=== PATIENT | female | born 1975 | race Caucasian/White ===

== ENCOUNTER 2018-05-25 19:01 | Emergency (ER) | payer OTHER ==
--- NOTE | 2018-05-25 20:25 | UC ---
Throat Pain/Nasal Saul HPI - HPI Summary HPI Summary: Pt presents to urgent with sore throat and right ear pain. Pt denies drainage. mild sinus congestion. + sick contacts Pt has taken elderberry syrup with little improvement. painful swallowing no drooling. No rash no cough, sob pt's medications reviewed this visit - History of Current Complaint Chief Complaint: UCEar Stated Complaint: ST, CONGESTION,RT EAR PAIN Time Seen by Provider: 05/25/18 20:22 Hx Obtained From: Patient Hx Last Menstrual Period: 05/12/18 Onset/Duration: Gradual Onset Severity: Moderate Pain Intensity: 5 Pain Scale Used: 0-10 Numeric - Allergies/Home Medications Allergies/Adverse Reactions: Allergies Allergy/AdvReac Type Severity Reaction Status Date / Time No Known Allergies Allergy Verified 05/25/18 19:57 Home Medications: Home Medications Elderberry Syrup 10 ml PO DAILY PRN 05/25/18 [History Confirmed 05/25/18] PMH/Surg Hx/FS Hx/Imm Hx Previously Healthy: Yes - Surgical History Surgical History: Yes Surgery Procedure, Year, and Place: tubal ligation. surgical repair of collapsed anticube vein as an - Family History Known Family History: Positive: Non-Contributory - Social History Lives: With Family Alcohol Use: Rare Substance Use Type: None Smoking Status (MU): Never Smoked Tobacco Review of Systems All Other Systems Reviewed And Are Negative: Yes Constitutional: Positive: Fatigue ENT: Positive: Sore Throat, Ear Ache, Sinus Congestion Cardiovascular: Positive: Negative Gastrointestinal: Positive: Negative Physical Exam - Summary Physical Exam Summary: Vital Signs Reviewed: Yes A+Ox3, no distress Eyes: Conjunctiva Clear, VIN. EOM intact and full ENT: Hearing grossly normal fluid mild retraction right TM, left wnl turbinates mild inflammation, mmoist, uvula midline, no exudate, + erythema no difficulty with secretions Neck: Positive: Supple no LA Respiratory: Positive: No respiratory distress, No accessory muscle use + CTA throughout no w/r Cardiovascular: RRR nl s1, s2 no m/r CBT <2 sec abd soft + BS nt/nd no guarding, no distension Musculoskeletal Exam: COYNE x 4 without difficulty Strength Intact, ROM Intact Neurological: Positive: Alert, + sensation throughout Psychological: Positive: Normal Response To Family Skin: Positive: no rash, no ecchymosis Triage Information Reviewed: Yes Vital Signs: Initial Vital Signs Temp 99.1 F 05/25/18 19:59 Pulse 92 05/25/18 19:59 Resp 18 05/25/18 19:59 BP 170/102 05/25/18 19:59 Pulse Ox 100 05/25/18 19:59 Throat Pain/Nasal Course/Dx - Course Course Of Treatment: Pt with right ear pain and sore throat progressive x 4 days. pt without fevers, painful swallowing. + strep throat. will rx abx. secretion precaution. return precaution. motrin/apap. garge. return precautions. Pt with markedly elevated BP - no sx - pt states has occrured before -recommend pt f/u PCP for recheck. strict return precautions - Differential Dx/Diagnosis Provider Diagnosis: Strep pharyngitis Discharge - Sign-Out/Discharge Documenting (check all that apply): Patient Departure All imaging exams completed and their final reports reviewed: No Studies - Discharge Plan Condition: Stable Disposition: HOME Prescriptions: Amoxicillin PO (*) [Amoxicillin 875 MG (*)] 875 mg PO BID #19 tab Patient Education Materials: Strep Throat (ED), Ear Infection (ED), Tonsillitis (ED) Referrals: [facility] [Outside] No Primary Care Phys,NOPCP [Primary Care Provider] - Additional Instructions: - Okay to alternate ibuprofen (Advil, Motrin) 600mg and Tylenol 1000mg every 3 hours for pain. Take with food. Do NOT take for more than 4-5 days - Okay to gargle and spit warm salt water every 4 hours as needed for pain - Stay well hydrated - frequent sips of cold fluids will be soothing to your throat (popsicles, jello, ice cream, ice water). Avoid excess caffeine until your symptoms have resolved. -Throat infections are spread by oral secretions - do not share eating or drinking utensils until you symptoms are resolved. Clean items that may get your secretions such as cell phones, ipads, computer mouse, television remotes. After you have been on antibiotics for 2 days, change your toothbrush and your pillowcase. - humidify the air in the room where you sleep - boil water, run a hot steam shower, vaporizer, cups of water by heat register - Okay to take over the counter cough and decongestant medication - Your blood pressure is elevated today - it is recommended you establish with a primary care provider to have your blood pressure monitored. Contact your doctor to arrange a follow-up appointment as needed - Billing Disposition and Condition Condition: STABLE Disposition: Home
[2018-05-25] MEDS ORDERED: Amoxicillin PO (*) 500 MG CAP PO ONE (20:35)
== END 2018-05-25 20:51 | disposition home or self-care (01) ==
LOC: UCCORT 19:01
DX: J02.0 Streptococcal pharyngitis (principal)
CPT/HCPCS: 87651; 99202; A9270-GY; G0463